=== PATIENT | male | born 1965 | race American Indian/Alaskan Native ===

== ENCOUNTER 2021-09-30 08:50 | Emergency (ER) | payer MEDICAID ==
--- NOTE | 2021-09-30 09:27 | Emergency Department Report ---
HPI - General Chief Complaint: Syncope Time Seen by Provider: 09/30/21 09:05 - HPI HPI: 55-year-old -[place] male presents to the emergency department via EMS from therapy with complaint of having some type of episode in which the patient remained conscious but felt like he was unable to speak or move. The patient was just admitted here from 09/26-09/29 for work-up of a stroke. The patient does have a history of CVA from 5 years ago the left him with some residual left-sided deficits. When the patient came here a few days ago he had some difficulty with speech and worsening of that left-sided weakness. This morning the patient describes it as "I knew who she (the therapist) was and I was trying to respond to her but I was unable to do so." He says that they took off his coat and the patient was very diaphoretic and he felt warm. At the time of my examination the patient is awake, alert, oriented, AAO x3. Currently he feels like he is at his baseline status/ability. The patient does have a seizure history and asks "is a possible to have a seizure but still be awake?" He takes Depakote and Keppra for his seizures. Patient has a history of hypertension. Patient says that he is compliant with all medications. ED Past Medical Hx - Past Medical History Previous Medical History?: Yes Hx Hypertension: Yes Hx CVA: Yes (2017) Hx Congestive Heart Failure: Yes Hx Diabetes: Yes Hx Psychiatric Treatment: Yes (anxiety) Additional medical history: Afib - Social History Smoking Status: Never Smoker - Medications Home Medications: Home Medications Medication Instructions Recorded Confirmed Last Taken Type Furosemide [Lasix TAB] 40 mg PO BID 09/26/21 09/26/21 09/26/21 History AtorvaSTATin [Lipitor] 40 mg PO QHS #30 tab 09/28/21 Unknown Rx Potassium Chloride [K-Dur] 20 meq PO QDAY #30 tablet 09/28/21 Unknown Rx Apixaban [Eliquis] 5 mg PO BID #60 09/30/[address] [Depvicki Dr] 500 mg PO Q8H #90 09/30/21 Unknown Rx carvediloL [Coreg] 6.25 mg PO BID #60 09/30/21 Unknown Rx ED Review of Systems ROS: Stated complaint: SYNCOPE Other details as noted in HPI Comment: All other systems reviewed and negative Constitutional: diaphoresis. denies: chills, fever Eyes: denies: eye pain, vision change ENT: denies: ear pain, throat pain Respiratory: denies: cough, shortness of breath Cardiovascular: denies: chest pain, palpitations Gastrointestinal: denies: abdominal pain, vomiting Genitourinary: denies: dysuria, discharge Musculoskeletal: denies: back pain, arthralgia Skin: denies: rash, lesions Neurological: other (unresponsive episode). denies: headache Physical Exam - Physical Exam Vital Signs: Vital Signs 09/30/21 08:52 Temperature 98.8 F Pulse Rate 100 H Respiratory 18 Rate Blood Pressure 139/90 [Left] O2 Sat by Pulse 97 Oximetry Physical Exam: GENERAL: The patient is well-developed well-nourished. HENT: Normocephalic. Atraumatic. Patient has moist mucous membranes. EYES: Extraocular motions are intact. Pupils equal reactive to light bilaterally. No nystagmus. NECK: Supple. Trachea is midline. CHEST/LUNGS: Clear to auscultation. There is no respiratory distress noted. HEART/CARDIOVASCULAR: Regular. There is no tachycardia. There is no murmur. ABDOMEN: Abdomen is soft, nontender. Patient has normal bowel sounds. There is no abdominal distention. SKIN: Skin is warm and dry. NEURO: The patient is awake, alert, and oriented. The patient is cooperative. There is some left upper and lower extremity weakness when compared to the right. No facial asymmetry. Cranial nerves II through XII grossly intact. MUSCULOSKELETAL: There is no tenderness or deformity. ED Course Vital Signs 09/30/21 08:52 Temperature 98.8 F Pulse Rate 100 H Respiratory 18 Rate Blood Pressure 139/90 [Left] O2 Sat by Pulse 97 Oximetry ED Medical Decision Making - Lab Data Result diagrams: 09/30/21 11:45 09/30/21 11:45 Lab Results 09/30/21 09/30/21 09/30/21 Range/Units 11:45 11:45 11:45 WBC 7.0 (4.5-11.0) K/mm3 RBC 5.07 H (3.65-5.03) M/mm3 Hgb 16.1 H (11.8-15.2) gm/dl Hct 49.4 H (35.5-45.6) % MCV 97 H (84-94) fl MCH 32 (28-32) pg MCHC 33 (32-34) % RDW 14.8 (13.2-15.2) % Plt Count 190 (140-440) K/mm3 Lymph % (Auto) 24.3 (13.4-35.0) % [place] % (Auto) 11.7 H (0.0-7.3) % Eos % (Auto) 0.9 (0.0-4.3) % Baso % (Auto) 0.3 (0.0-1.8) % Lymph # (Auto) 1.7 (1.2-5.4) K/mm3 [place] # (Auto) 0.8 (0.0-0.8) K/mm3 Eos # (Auto) 0.1 (0.0-0.4) K/mm3 Baso # (Auto) 0.0 (0.0-0.1) K/mm3 Seg Neutrophils % 62.8 (40.0-70.0) % Seg Neutrophils # 4.4 (1.8-7.7) K/mm3 Sodium 140 (137-145) mmol/L Potassium 4.8 (3.6-5.0) mmol/L Chloride 105.1 (98-107) mmol/L Carbon Dioxide 21 L (22-30) mmol/L Anion Gap 19 mmol/L BUN 29 H (9-20) mg/dL Creatinine 2.0 H (0.8-1.3) mg/dL Estimated GFR 42 ml/min BUN/Creatinine Ratio 15 % Glucose 104 H (75-100) mg/dL Calcium 9.5 (8.4-10.2) mg/dL Total Bilirubin 1.00 (0.1-1.2) mg/dL AST 19 (5-40) units/L ALT 11 (7-56) units/L Alkaline Phosphatase 59 (35-129) units/L Ammonia 35.0 (25-60) umol/L Total Creatine Kinase 269 H (55-170) units/L Troponin T 0.058 H (0.00-0.029) ng/mL Total Protein 8.7 H (6.3-8.2) g/dL Albumin 4.0 (3.9-5) g/dL Albumin/Globulin Ratio 0.9 % TSH (0.270-4.200) mlU/mL Valproic Acid (50-100) ug/mL 09/30/21 09/30/21 Range/Units 11:45 14:17 WBC (4.5-11.0) K/mm3 RBC (3.65-5.03) M/mm3 Hgb (11.8-15.2) gm/dl Hct (35.5-45.6) % MCV (84-94) fl MCH (28-32) pg MCHC (32-34) % RDW (13.2-15.2) % Plt Count (140-440) K/mm3 Lymph % (Auto) (13.4-35.0) % [place] % (Auto) (0.0-7.3) % Eos % (Auto) (0.0-4.3) % Baso % (Auto) (0.0-1.8) % Lymph # (Auto) (1.2-5.4) K/mm3 [place] # (Auto) (0.0-0.8) K/mm3 Eos # (Auto) (0.0-0.4) K/mm3 Baso # (Auto) (0.0-0.1) K/mm3 Seg Neutrophils % (40.0-70.0) % Seg Neutrophils # (1.8-7.7) K/mm3 Sodium (137-145) mmol/L Potassium (3.6-5.0) mmol/L Chloride (98-107) mmol/L Carbon Dioxide (22-30) mmol/L Anion Gap mmol/L BUN (9-20) mg/dL Creatinine (0.8-1.3) mg/dL Estimated GFR ml/min BUN/Creatinine Ratio % Glucose (75-100) mg/dL Calcium (8.4-10.2) mg/dL Total Bilirubin (0.1-1.2) mg/dL AST (5-40) units/L ALT (7-56) units/L Alkaline Phosphatase (35-129) units/L Ammonia (25-60) umol/L Total Creatine Kinase (55-170) units/L Troponin T (0.00-0.029) ng/mL Total Protein (6.3-8.2) g/dL Albumin (3.9-5) g/dL Albumin/Globulin Ratio % TSH 3.030 (0.270-4.200) mlU/mL Valproic Acid 53.1 (50-100) ug/mL - Radiology Data Radiology results: report reviewed CT BRAIN: 09/30/2021 INDICATION / CLINICAL INFORMATION: unresponsive episode. Hx of CVA. COMPARISON: CT brain 09/26/2021 FINDINGS: BRAIN/INTRACRANIAL STRUCTURES: Unenhanced CT images of the brain were obtained and compared to the recent prior exam from 09/26/2021. There is been no change. Again seen is prominent diffuse cerebral atrophy, with evidence of chronic ischemic changes. Chronic encephalomalacia is noted in the right parietal lobe, right posterior temporal lobe, left occipital lobe, left cerebellar hemisphere. This pattern has not changed when compared to the prior exam. There is no evidence of acute large vessel territory ischemic injury, hemorrhage, or mass. There are no abnormal extra-axial fluid collections. Soft tissue changes in the right nasal c avity are again noted, unchanged. EXTRACRANIAL STRUCTURES: Unremarkable. IMPRESSION: No evidence of acute abnormality. Extensive chronic ischemic changes and diffuse cerebral atrophy. - Medical Decision Making This patient presents to the emergency department after he had some type of unresponsive episode this morning in which he remembers being awake but unable to speak or move for a short period of time. Upon presentation to the emergency department the patient is back at his baseline status/ability. On examination he has some left upper and lower extremity weakness which is consistent with previous CVA and residual deficits. CT of the head without contrast does not show any hemorrhage, large vessel occlusion, or any other acute process. Labs show chronic kidney disease with a creatinine of 2, elevated troponin of 0.058. Patient had a telemedicine neurology consult and Dr. Mcintosh's recommendations are in the chart. He feels that the patient may have had a focal seizure and he recommends admission for EEG and to give the patient a dose of antiepileptic medication. The patient was given a dose of Keppra. It is my intent for this patient to be admitted to the hospital for further evaluation and he was presented to the admitting hospitalist, Dr. Ziegler. Critical Care Time: No Critical care attestation.: If time is entered above; I have spent that time in minutes in the direct care o f this critically ill patient, excluding procedure time. ED Disposition Clinical Impression: Seizure disorder, Chronic kidney disease, Unresponsive episode, Elevated troponin Hypertension Qualifiers: Hypertension type: primary hypertension Qualified Code(s): I10 - Essential (primary) hypertension Disposition: 09 ADMITTED INPATIENT Is pt being admited?: Yes Condition: Fair Instructions: Hypertension (ED)
--- NOTE | 2021-09-30 10:17 | Cat Scan Report ---
CT BRAIN: 09/30/2021 INDICATION / CLINICAL INFORMATION: unresponsive episode. Hx of CVA. COMPARISON: CT brain 09/26/2021 FINDINGS: BRAIN/INTRACRANIAL STRUCTURES: Unenhanced CT images of the brain were obtained and compared to the re cent prior exam from 09/26/2021. There is been no change. Again seen is prominent diffuse cerebral atrophy, with evidence of chronic ischemic changes. Chronic encephalomalacia is noted in the right parietal lobe, right posterior temporal lobe, left occipital l obe, left cerebellar hemisphere. This pattern has not changed when compared to the prior exam. There is no evidence of acute large vessel territory ischemic injury, hemorrhage, or mass. There are no abnormal extra-axial fluid collections. Soft tissue changes in the right nasal cavity are again noted, unchanged. EXTRACRANIAL STRUCTURES: Unremarkable. IMPRESSION: No evidence of acute abnormality. Extensive chronic ischemic changes and diffuse cerebral atrophy. No significant change when compared to 09/26/[address] scans at this location are performed using dose reduction to ALARA by means of automated expos ure control. Signer Name: Remington Smalls MD Signed: 09/30/2021 10:13 AM Workstation Name: [id number]
[2021-09-30 10:46] VITALS: BP 147/118
--- NOTE | 2021-09-30 11:57 | Consultation ---
History of Present Illness - Reason for Consult Consult date: 09/30/21 - History of Present Illness [facility] Consult Note # Demographics Consult Type: Acute Stroke Level 2 (4.5-24 hrs) Patient Location: Emergency Room First Name: Derrick Last Name: Campos Date of : 1965 Age: 55 Gender: Male Facility: [facility] Time of Initial Page ( Time): 09/30/2021, 11:46 Time of Return Call ( Time): 09/30/2021, 11:46 # HPI History: 55yo man who discharged yesterday after having stroke evaluation and increased left weakness. He had an episode of unresponsiveness and fell out of his seat this morning. He felt he was hot and cold before this episode today. He states he knew what he wanted to say, but was not able to get the words out. After a minute or so, he was better and is back to baseline # Scores Time of exam and NIHSS ( Time): 09/30/2021, 11:50 Level of Consciousness 1a: [0] = Alert; keenly responsive LOC Questions 1b: [0] = Answers both questions correctly LOC Commands 1c: [0] = Performs both tasks correctly Best Gaze 2: [0] = Normal Visual 3: [0] = No visual loss Facial Palsy 4: [0] = Normal symmetrical movements Motor Arm Left 5a: [1] = Drift Motor Arm Right 5b: [0] = No drift Motor Leg Left 6a: [1] = Drift Motor Leg Right 6b: [0] = No drift Limb Ataxia 7: [0] = Absent Sensory 8: [0] = Normal Best Language 9: [0] = No aphasia Dysarthria 10: [0] = Normal Extinction and Inattention 11: [0] = No abnormality NIHSS Total: 2 # PMH-FH-SH Past Medical History: hypertension seizure stroke residual left weakness Medications: depakotea nd keppra # Data Head CT: no bleed # Assessment Impression: Altered Mental Status possible seizure and postictal # Plan Labs: Ammonia CBC liver function tests depakote level: ideal is 75-100 Imaging: (urgency: routine): CT Angiogram Head and CT Angiogram Neck if this wasn't done on last admission Diagnostic Test: EEG Therapy/Evaluation: PT/OT evaluation Medication: continue depakote and Keppra that he is on at baseline Other: permissive hypertension telemetry monitoring seizure precautions I have discussed my recommendations with the referring provider Disposition: admit Medications and Allergies Allergies Allergy/AdvReac Type Severity Reaction Status Date / Time No Known Allergies Allergy Verified 09/30/21 08:58 Home Medications Medication Instructions Recorded Confirmed Last Taken Type Apixaban [Eliquis] 5 mg PO BID 09/26/21 09/26/21 09/26/[address] [Depakote Dr] 500 mg PO Q8H 09/26/21 09/26/21 09/26/21 History Furosemide [Lasix TAB] 40 mg PO BID 09/26/21 09/26/21 09/26/21 History carvediloL [Coreg] 6.25 mg PO BID 09/26/21 09/26/21 09/26/21 History AtorvaSTATin [Lipitor] 40 mg PO QHS #30 tab 09/28/21 Unknown Rx Potassium Chloride [K-Dur] 20 meq PO QDAY #30 tablet 09/28/21 Unknown Rx Exam - Constitutional Vitals: Temp Pulse Resp BP Pulse Ox 98.8 F 88 18 147/118 95 09/30/21 08:52 09/30/21 10:45 09/30/21 08:52 09/30/21 10:45 09/30/21 10:45
[2021-09-30 12:11] LABS: Basophils % (Auto) 0.3 % (0.0-1.8); Eosinophils # (Auto) 0.1 K/mm3 (0.0-0.4); Eosinophils % (Auto) 0.9 % (0.0-4.3); Hematocrit 49.4 % (35.5-45.6); Hemoglobin 16.1 gm/dl (11.8-15.2); Lymphocytes # (Auto) 1.7 K/mm3 (1.2-5.4); Lymphocytes % (Auto) 24.3 % (13.4-35.0); Mean Corpuscular HGB Conc 33 % (32-34); Mean Corpuscular Volume 97 fl (84-94); Monocytes # (Auto) 0.8 K/mm3 (0.0-0.8); Monocytes % (Auto) 11.7 % (0.0-7.3); Platelet Count 190 K/mm3 (140-440); Red Blood Count 5.07 M/mm3 (3.65-5.03); Red Cell Distribution Width 14.8 % (13.2-15.2)
[2021-09-30 12:19] LABS: Calcium 9.5 mg/dL (8.4-10.2)
[2021-09-30] MEDS ORDERED: levETIRAcetam 1000 MG/NS 0.75% 1,000 MG/100 ML BAG IV ONE (12:22)
--- NOTE | 2021-09-30 14:20 | Event Note ---
Date: 09/30/21 Patient emergency room for syncope and possible postictal state secondary to seizures Extensive work-up was done Recent MRI did not show any acute in CVA Patient had remote infarcts Patient has atrial fibrillation and seizure disorder and old CVA with left side residual weakness power is 4/5 power Patient given new prescriptions for Depakote and Coreg and statins. Patient to be discharged to his personal senior care Discharge diagnosis syncope 7 seizure disorder Old CVA Dyslipidemia Atrial fibrillation which is rate controlled on Eliquis.
== END 2021-09-30 15:43 | disposition admitted as inpatient to this hospital (09) ==
LOC: ED 08:50
DX: G40.909 Epilepsy, unspecified, not intractable, without status epilepticus (principal); I13.0 Hypertensive heart and chronic kidney disease with heart failure and stage 1 through stage 4 chronic kidney disease, or unspecified chronic kidney disease; E11.22 Type 2 diabetes mellitus with diabetic chronic kidney disease; N18.9 Chronic kidney disease, unspecified; I50.9 Heart failure, unspecified; F41.9 Anxiety disorder, unspecified; R79.89 Other specified abnormal findings of blood chemistry
CPT/HCPCS: 36415; 70450; 80053; 80164; 82140; 82550; 84443; 84484; 85025; 96374; 99284; J1953

== ENCOUNTER 2021-10-17 11:00 | Emergency (ER) | payer MEDICAID ==
[2021-10-17] MEDS ORDERED: SODIUM CHLORIDE 0.9% 1000 ML 1,000 ML IV ONE (11:08)
[2021-10-17] MEDS ORDERED: LORazepam 1 MG TAB PO ONE (11:08)
[2021-10-17 11:09] VITALS: BP 128/86
--- NOTE | 2021-10-17 11:11 | Emergency Department Report ---
ED General Adult HPI - General Chief complaint: Weakness Stated complaint: general weakness Time Seen by Provider: 10/17/21 11:05 Source: EMS Mode of arrival: Stretcher Limitations: No Limitations - History of Present Illness Initial comments: Patient was brought in by EMS due to generalized weakness. Patient states that he just feels badly. He reports he is weak all over. He has been seeing black spots. That is a precursor for his seizure. He has not these aura previously when he has had a seizure. He states he has been taking his Depakote re ligiously. He has not missed any dosages. His dosage has not changed. There is no recent history of head trauma. He has had no vomiting or diarrhea. He states he just does not feel well. He does report being fatigued with muscle aches. There is no cough or congestion. He has no sore throat. He has no vomiting or diarrhea. He denies dysuria or frequency. Patient just does not feel well. EMS was called by the patient and they transported him here. Symptoms have been present for about 2 to 3 days. He has not noticed any aggravating or alleviating factors. - Related Data Home Medications Medication Instructions Recorded Confirmed Last Taken Furosemide [Lasix TAB] 40 mg PO BID 09/26/21 09/26/21 09/26/21 Previous Rx's Medication Instructions Recorded Last Taken Type AtorvaSTATin [Lipitor] 40 mg PO QHS #30 tab 09/28/21 Unknown Rx Potassium Chloride [K-Dur] 20 meq PO QDAY #30 tablet 09/28/21 Unknown Rx Apixaban [Eliquis] 5 mg PO BID #60 09/30/[address] [Depakote Dr] 500 mg PO Q8H #90 09/30/21 Unknown Rx carvediloL [Coreg] 6.25 mg PO BID #60 09/30/21 Unknown Rx Allergies Allergy/AdvReac Type Severity Reaction Status Date / Time No Known Allergies Allergy Verified 09/30/21 08:58 ED Review of Systems ROS: Stated complaint: general weakness Other details as noted in HPI Comment: All other systems reviewed and negative Constitutional: denies: fever Eyes: as per HPI ENT: denies: epistaxis Respiratory: denies: cough Cardiovascular: denies: chest pain Endocrine: denies: unexplained weight loss Gastrointestinal: denies: vomiting, diarrhea Genitourinary: denies: dysuria Musculoskeletal: denies: back pain Skin: denies: rash Neurological: denies: headache Hematological/Lymphatic: denies: easy bruising ED Past Medical Hx - Past Medical History Hx Hypertension: Yes Hx CVA: Yes (2017) Hx Congestive Heart Failure: Yes Hx Diabetes: Yes Hx Psychiatric Treatment: Yes (anxiety) Additional medical history: Afib - Family History Family history: hypertension - Social History Smoking Status: Never Smoker - Medications Home Medications: Home Medications Medication Instructions Recorded Confirmed Last Taken Type Furosemide [Lasix TAB] 40 mg PO BID 09/26/21 09/26/21 09/26/21 History AtorvaSTATin [Lipitor] 40 mg PO QHS #30 tab 09/28/21 Unknown Rx Potassium Chloride [K-Dur] 20 meq PO QDAY #30 tablet 09/28/21 Unknown Rx Apixaban [Eliquis] 5 mg PO BID #60 09/30/[address] [Depakote Dr] 500 mg PO Q8H #90 09/30/21 Unknown Rx carvediloL [Coreg] 6.25 mg PO BID #60 09/30/21 Unknown Rx ED Physical Exam - General Limitations: No Limitations, Other (Pulse ox noted and normal per EMS.) General appearance: alert, in no apparent distress - Head Head exam: Present: atraumatic, normocephalic, normal inspection - Eye Eye exam: Present: normal appearance, EOMI. Absent: scleral icterus - ENT ENT exam: Present: normal orophraynx, normal external ear exam - Neck Neck exam: Present: normal inspection. Absent: meningismus - Respiratory Respiratory exam: Present: normal lung sounds bilaterally. Absent: respiratory distress - Cardiovascular Cardiovascular Exam: Present: regular rate, normal rhythm - GI/Abdominal GI/Abdominal exam: Present: soft. Absent: tenderness - Extremities Exam Extremities exam: Present: normal capillary refill. Absent: calf tenderness - Back Exam Back exam: Absent: CVA tenderness (R), CVA tenderness (L) - Neurological Exam Neurological exam: Present: alert, oriented X3, CN II-XII intact, normal gait, reflexes normal. Absent: motor sensory deficit - Psychiatric Psychiatric exam: Present: normal affect, normal mood - Skin Skin exam: Present: warm, dry ED Course Vital Signs 10/17/21 11:08 Temperature 97.3 F L Pulse Rate 61 Respiratory 16 Rate Blood Pressure 128/86 [Left] O2 Sat by Pulse 98 Oximetry - Reevaluation(s) Reevaluation #1: 10/17/21 10:45 EMS was met upon arrival. IV and labs are now ordered as the patient has been typed into the computer. Old records reviewed Reevaluation #2: 10/17/21 12:51 Labs have been noted and reviewed. Patient was subsequently discharged. Is not had any type of seizure activity here. ED Medical Decision Making - Lab Data Result diagrams: 10/17/21 11:34 10/17/21 11:34 - Medical Decision Making Patient presents with generalized malaise and generalized weakness. He does not have focal symptoms suggestive of stroke. He has not had seizure activity here despite having visual scotomata. There is no electrolyte derangement or metabolic abnormality that has been noted. He does not have Depakote toxicity. Patient was treated symptomatically. There are no URI symptoms or other symptoms suggestive of coronavirus or the flu. He certainly does not appear to be ill or toxic. He has no meningeal signs. There was no neurologic deficit that would suggest head injury, space-occupying lesion, or need for CT emergently. Critical Care Time: No Critical care attestation.: If time is entered above; I have spent that time in minutes in the direct care of this critically ill patient, excluding procedure time. ED Disposition Clinical Impression: Malaise, Myalgia Visual field scotoma Qualifiers: Laterality: bilateral Qualified Code(s): H53.413 - Scotoma involving central area, bilateral Disposition: HOME / SELF CARE / HOMELESS Is pt being admited?: No Condition: Stable Additional Instructions: Drink plenty water. Use Tylenol and ibuprofen for pain and fever. Return for a ny problems or concerns. Continue your home medication. Get to sleep. Avoid caffeine as much as possible as well as flashing lights.
[2021-10-17 12:04] LABS: Basophils # (Auto) 0.1 K/mm3 (0.0-0.1); Basophils % (Auto) 1.2 % (0.0-1.8); Eosinophils # (Auto) 0.2 K/mm3 (0.0-0.4); Eosinophils % (Auto) 2.8 % (0.0-4.3); Hematocrit 46.7 % (35.5-45.6); Hemoglobin 15.5 gm/dl (11.8-15.2); Lymphocytes # (Auto) 2.2 K/mm3 (1.2-5.4); Lymphocytes % (Auto) 38.3 % (13.4-35.0); Mean Corpuscular HGB Conc 33 % (32-34); Mean Corpuscular Volume 95 fl (84-94); Monocytes # (Auto) 0.8 K/mm3 (0.0-0.8); Monocytes % (Auto) 13.8 % (0.0-7.3); Red Cell Distribution Width 14.9 % (13.2-15.2)
[2021-10-17 12:05] LABS: Platelet Count 122 K/mm3 (140-440)
[2021-10-17 12:17] LABS: Calcium 9.7 mg/dL (8.4-10.2)
== END 2021-10-17 16:05 | disposition home or self-care (01) ==
LOC: ED 11:00
DX: R53.81 Other malaise (principal); M79.10 Myalgia, unspecified site; H53.413 Scotoma involving central area, bilateral
CPT/HCPCS: 36415; 80048; 80164; 83735; 85025; 96360; 99284; J7030; Q0162